=== PATIENT | female | born 1980 ===

== ENCOUNTER 2018-02-27 18:55 | Emergency (ER) | payer SELFPAY ==
[2018-02-27 19:42] VITALS: BP 114/71; PULSE 86; RESP 18; TEMP 98.5; O2SAT 98
[2018-02-27] MEDS ORDERED: Oxycodone/Acetaminophen 5/325 mg Tab PO STA (20:05)
[2018-02-27] MEDS ORDERED: Silver Sulfadiazine 1% CREAM (50 gm) TOP STA (20:05)
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
[2018-02-27] MEDS ORDERED: Bacitracin 500 Units/gm Oint Foilpak UD ONE (20:17)
[2018-02-27] MEDS ORDERED: Silver Sulfadiazine 1% CREAM (50 gm) ONE (20:17)
[2018-02-27] MEDS ORDERED: Oxycodone/Acetaminophen 5/325 mg Tab ONE (20:17)
== END 2018-02-27 21:42 | disposition home or self-care (01) ==
LOC: H.ER 18:55
DX: T23.102A Burn of first degree of left hand, unspecified site, initial encounter (principal); X10.2XXA Contact with fats and cooking oils, initial encounter; Y92.000 Kitchen of unspecified non-institutional (private) residence as the place of occurrence of the external cause

== ENCOUNTER 2018-07-20 16:48 | Emergency (ER) | payer SELFPAY ==
[2018-07-20 18:10] VITALS: BP 120/72; PULSE 70; RESP 18; TEMP 98.2; O2SAT 100
--- NOTE | 2018-07-20 18:58 | ED PDOC ---
Upper Extremity Pain/Injury Time Seen by Provider: 07/20/18 18:23 Chief Complaint (Nursing): Upper Extremity Problem/Injury Chief Complaint (Provider): right shoulder pain History Per: Patient History/Exam Limitations: no limitations Onset/Duration Of Symptoms: Days (x8) Current Symptoms Are (Timing): Still Present Additional Complaint(s): Corina Lombardi is a 38 year old female, with no significant past medical history, who presents to the emergency department complaining of right shoulder pain onset x8 days ago. 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 She reports difficulty raising her arm past shoulder height. Patient was using a muscle relaxer from [place] for x[place] days but felt concerned because pain would back after using which urged her to stop using medication. She has also been taking Tylenol for pain. She denies any fever, chills, elbow pain, numbness or tingling to hands. No further medical complaints. PMD: None provided. Past Medical History Reviewed: Historical Data, Nursing Documentation, Vital Signs Vital Signs: Last Vital Signs Temp 98.2 F 07/20/18 18:08 Pulse 70 07/20/18 18:08 Resp 18 07/20/18 18:08 BP 120/72 07/20/18 18:08 Pulse Ox 100 07/20/18 18:08 - Medical History PMH: No Chronic Diseases - Surgical History Surgical History: Appendectomy - Family History Family History: States: Unknown Family Hx - Social History Current smoker - smoking cessation education provided: No Alcohol: Social Drugs: Denies - Immunization History Hx Tetanus Toxoid Vaccination: Yes - Home Medications Home Medications: Ambulatory Orders Medication Instructions Recorded Ibuprofen [Motrin Tab] 800 mg PO Q8 PRN #20 tab 02/27/18 Silver Sulfadiazine 1% 50 gm 1 unit TOP BID #1 jar 02/27/18 [Silvadene] oxyCODONE/Acetaminophen [Percocet 1 ea PO Q6H PRN #10 tab 02/27/18 5/325 mg Tab] Cyclobenzaprine [Cyclobenzaprine 10 mg PO Q8 PRN 7 Days tab 07/20/18 HCl] Ibuprofen [Motrin Tab] 800 mg PO Q6 PRN 7 Days tab 07/20/18 - Allergies Allergies/Adverse Reactions: Allergies Allergy/AdvReac Type Severity Reaction Status Date / Time No Known Allergies Allergy Verified 02/27/18 19:39 Review of Systems ROS Statement: Except As Marked, All Systems Reviewed And Found Negative Constitutional: Negative for: Fever, Chills Musculoskeletal: Positive for: Shoulder Pain (right). Negative for: Arm Pain (elbow) Neurological: Negative for: Numbness (tingling to hands) Physical Exam - Reviewed Nursing Documentation Reviewed: Yes Vital Signs Reviewed: Yes - Physical Exam Appears: Positive for: Uncomfortable Head Exam: Positive for: ATRAUMATIC, NORMAL INSPECTION, NORMOCEPHALIC Skin: Positive for: Normal Color, Warm, Dry Eye Exam: Positive for: Normal appearance, EOMI, PERRL Neck: Positive for: Normal, Painless ROM Pulses-Radial (L): 2+ Pulses-Radial (R): 2+ Extremity: Positive for: Normal ROM (has pain with flexion and abduction at the right shoulder. ), Capillary Refill (<2 sec). Negative for: Tenderness (No point tenderness on palpation of right arm), Deformity (No ecchymosis, erythema or deformity of right arm ), Swelling Neurologic/Psych: Positive for: Alert, Oriented. Negative for: Motor/Sensory Deficits - ECG O2 Sat by Pulse Oximetry: 100 (RA) Pulse Ox Interpretation: Normal Medical Decision Making Medical Decision Making: Time: 18:23 Initial impression: Right shoulder pain Initial Plan: --Urine --Toradol 30mg IM --Shoulder Right [RAD] --Reevaluation 20:10 -X-ray read by provider, shows no acute fracture or dislocation. Patient reports improvement of symptoms and is medically stable for discharge home. Patient was referred to orthopedic if pain persists or worsens. Scribe Attestation: Documented by Harry Douglas, acting as a scribe for Rose Mary Colon PA-C. Provider Scribe Attestation: All medical record entries made by the Scribe were at my direction and personally dictated by me. I have reviewed the chart and agree that the record accurately reflects my personal performance of the history, physical exam, medical decision making, and the department course for this patient. I have also personally directed, reviewed, and agree with the discharge instructions and disposition. Disposition - Clinical Impression Clinical Impression: Shoulder pain - Disposition Referrals: [facility] [place] [Outside] Disposition: Routine/Home Disposition Time: 20:10 Condition: STABLE Additional Instructions: F/u with orthopedist if pain persists. Take Ibuprofen and Flexeril for pain fairly regularly for the next couple of days. Prescriptions: Cyclobenzaprine [Cyclobenzaprine HCl] 10 mg PO Q8 PRN 7 Days tab PRN Reason: Pain, Moderate (4-7) Ibuprofen [Motrin Tab] 800 mg PO Q6 PRN 7 Days tab PRN Reason: Pain, Moderate (4-7) Instructions: Shoulder Pain (DC) Forms: [facility] (Uzbek) Print Language: PERSIAN
--- NOTE | 2018-07-21 09:04 | RAD ---
Date of service: 07/20/2018 PROCEDURE: Radiographs of the Right Shoulder HISTORY: s/p fall onto R shoulder COMPARISON: No prior. FINDINGS: BONES: Comminuted fracture of the greater tuberosity proximal right humerus is suspected. Shoulder CT or MRI can be utilized for added characterization. JOINTS: Normal. Glenohumeral and acromioclavicular joints preserved. No osteoarthritis. SOFT TISSUES: Normal. OTHER FINDINGS: None. IMPRESSION: Comminuted fracture of the greater tuberosity proximal right humerus is suspected. Follow-up CT or MRI recommended.
== END 2018-07-20 20:07 | disposition home or self-care (01) ==
LOC: H.ER 16:48
DX: M25.511 Pain in right shoulder (principal)
CPT/HCPCS: 73030; 81025; 96372; 99283; J1885

== ENCOUNTER 2018-07-23 13:47 | Emergency (ER) | payer OTHER ==
[2018-07-23 14:49] VITALS: PULSE 81; RESP 16; TEMP 98.1; O2SAT 99
--- NOTE | 2018-07-23 16:24 | ED PDOC ---
Upper Extremity Pain/Injury Time Seen by Provider: 07/23/18 14:53 Chief Complaint (Nursing): Upper Extremity Problem/Injury Chief Complaint (Provider): Right shoulder pain History Per: Patient History/Exam Limitations: no limitations Onset/Duration Of Symptoms: Days Current Symptoms Are (Timing): Still Present Quality: "Pain" Additional History Per: Patient Additional Complaint(s): 38yo female, comes to ER for evaluation after she was informed her XR showed possible fracture. Patient states she fell approximately 15 days ago and injured her left shoulder. She was evaluated here on 07/20/18 for left shoulder pain, had an XR and was discharged home with instructions to follow up. Patient states the pain is still present, but not as worse; she states it worsens when attempting to lift her shoulder or move her arm upwards. Otherwise, no new injuries or trauma, and no weakness or numbness. No additional complaints. PMD: none Past Medical History Reviewed: Historical Data, Nursing Documentation, Vital Signs Vital Signs: Last Vital Signs Temp 98.1 F 07/23/18 14:47 Pulse 81 07/23/18 14:47 Resp 16 07/23/18 14:47 BP 107/66 07/23/18 14:47 Pulse Ox 99 07/23/18 14:47 - Medical History PMH: No Chronic Diseases - Surgical History Surgical History: Appendectomy - Family History Family History: States: No Known Family Hx - Immunization History Hx Tetanus Toxoid Vaccination: Yes - Home Medications Home Medications: Ambulatory Orders Medication Instructions Recorded Ibuprofen [Motrin Tab] 800 mg PO Q8 PRN #20 tab 02/27/18 Silver Sulfadiazine 1% 50 gm 1 unit TOP BID #1 jar 02/27/18 [Silvadene] oxyCODONE/Acetaminophen [Percocet 1 ea PO Q6H PRN #10 tab 02/27/18 5/325 mg Tab] Cyclobenzaprine [Cyclobenzaprine 10 mg PO Q8 PRN 7 Days tab 07/20/18 HCl] RX: Ibuprofen [Motrin Tab] 800 mg PO Q6 PRN 7 Days tab 07/20/18 - Allergies Allergies/Adverse Reactions: Allergies Allergy/AdvReac Type Severity Reaction Status Date / Time No Known Allergies Allergy Verified 02/27/18 19:39 Review of Systems ROS Statement: Except As Marked, All Systems Reviewed And Found Negative Musculoskeletal: Positive for: Shoulder Pain (right ) Neurological: Negative for: Weakness, Numbness Physical Exam - Reviewed Nursing Documentation Reviewed: Yes Vital Signs Reviewed: Yes - Physical Exam Appears: Positive for: Non-toxic, No Acute Distress Head Exam: Positive for: ATRAUMATIC, NORMAL INSPECTION, NORMOCEPHALIC Skin: Positive for: Normal Color Eye Exam: Positive for: Normal appearance Neck: Positive for: Supple Cardiovascular/Chest: Positive for: Regular Rate, Rhythm Respiratory: Positive for: Normal Breath Sounds Back: Positive for: Normal Inspection Extremity: Positive for: Tenderness (tenderness to palpation of lateral surface of left shoulder), 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 Negative for: Normal ROM (Decreased ROM of right shoulder with abduction as well as elevation of right arm), Deformity, Swelling Neurologic/Psych: Positive for: Alert, Oriented. Negative for: Motor/Sensory Deficits - ECG O2 Sat by Pulse Oximetry: 99 (RA) Pulse Ox Interpretation: Normal Medical Decision Making Medical Decision Making: Left shoulder pain, rule out fracture Plan: -- CT Left upper arm 18:[address] FINDINGS: Comminuted, nondisplaced fracture affecting the greater tuberosity. This confirms findings on recent plain film radiographs. Preservation of glenohumeral relationship. No abnormalities acromioclavicular joint. Unremarkable scapula as visualized. No adjacent rib abnormalities. IMPRESSION: Fracture limited to the greater tuberosity, comminuted components. Preservation of glenohumeral relationship. 18:16 Calling orthopedics. 18:[address] Virk. Advised to give a sling and for patient to follow up in 2 weeks. informed pt of results and plan. Scribe Attestation: Documented by Fabienne Schneider acting as a scribe for Balwinder Alexander MD. Provider Attestation: All medical record entries made by the Scribe were at my direction and personally dictated by me. I have reviewed the chart and agree that the record accurately reflects my personal performance of the history, physical exam, medical decision making, and the department course for this patient. I have also personally directed, reviewed, and agree with the discharge instructions and disposition. Disposition - Clinical Impression Clinical Impression: Greater tuberosity of humerus fracture - Patient ED Disposition Is Patient to be Admitted: No Counseled Patient/Family Regarding: Studies Performed, Diagnosis, Need For Followup - Disposition Referrals: [facility] [Outside] Dave Schwartz MD [Staff Provider] - Disposition: Routine/Home Disposition Time: 18:20 Condition: IMPROVED Additional Instructions: follow up with orthopedist in 2 weeks use sling as instructed take motrin for pain return to the ED with any worsening or concerning symptoms Instructions: Upper Arm Fracture Forms: [facility] (Wolof), [facility] (Costa Rican) Print Language: KYRGYZ
--- NOTE | 2018-07-23 18:08 | CT ---
Date of service: 07/23/2018 PROCEDURE: CT right upper extremity HISTORY: r shoulder pain possibel fracture COMPARISON: 07/20/2008. Right shoulder radiographs TECHNIQUE: 2.5 mm axial acquisition and display. Coronal and sagittal reconstructions. Dose report (mGy-cm): 236.46. FINDINGS: Comminuted, nondisplaced fracture affecting the greater tuberosity. This confirms findings on recent plain film radiographs. Preservation of glenohumeral relationship. No abnormalities acromioclavicular joint. Unremarkable scapula as visualized. No adjacent rib abnormalities. IMPRESSION: Fracture limited to the greater tuberosity, comminuted components. Preservation of glenohumeral relationship.
[2018-07-23 20:08] VITALS: BP 112/70
== END 2018-07-23 18:26 | disposition home or self-care (01) ==
LOC: H.ER 13:47
DX: S42.252G Displaced fracture of greater tuberosity of left humerus, subsequent encounter for fracture with delayed healing (principal); W19.XXXD Unspecified fall, subsequent encounter